=== PATIENT | male | born 2000 ===

== ENCOUNTER 2023-05-24 12:07 | Emergency (ER) | payer SELFPAY ==
[2023-05-24 12:16] VITALS: BP 175/105; PULSE 97; RESP 18; TEMP 37.1; O2SAT 96
--- NOTE | 2023-05-24 12:54 | ED.GENADUL_ITS ---
Discharge Plan Disposition Patient Disposition: Eloped Condition: Stable Discharge Details Chief Complaint: PsychEval Clinical Impression: Psychiatric disorder Primary Care Provider: Unknown,Unknown ED Provider: Bradley Johnson Home Meds and New Rx's Prescriptions: No Action Unable to Obtain HPI General Date/Time Provider Initiated Documentation: 05/24/23 12:38 . HPI Narrative: 22-year-old male endorses history of bipolar disorder being treated by psychiatrist however endorses multiple medications that he is unsure have helped him presents in psychiatric crisis, endorses that his family and friends are collaborating against him, endorses being awake for some time, denies suicidal or homicidal ideation however endorses that he knows that he needs help. Endorses prior psychiatric hospitalization in the past within the last 2 years. Related Data Home Medications Medication Instructions Recorded Confirmed Unknown [Unable to Obtain] 05/24/23 05/24/23 General Stated Complaint: PsychEval RIGOBERTO: 2 Review of Systems Narrative: Review of Systems Constitutional: negative Eyes: negative ENT: negative Cardiovascular: negative Respiratory: negative Gastrointestinal: negative : negative Musculoskeletal: negative Skin: negative Neurologic: negative Psych: Anxiety, paranoia Exam Narrative Exam Narrative: Physical Examination General: alert, awake, cooperative, moderate psychomotor agitation HEENT: normocephalic, atraumatic; PERRL, EOM intact, conjunctiva normal; no nasal discharge; moist mucous membranes Neck: supple, trachea midline; full ROM Chest: normal to inspection Respiratory: normal respiratory effort, speaking in full sentences Skin: no lesions, rashes or trauma appreciated Neuro: AAOx3, moving all extremities without deficit, no ataxia Extremities: No signs of trauma Psych: Mild to moderate psychomotor agitation, paranoia, delusions, moderately disorganized speech Course Vital Signs Vital signs: Vital Signs Temperature 37.1 C 05/24/23 12:16 Pulse 97 H 05/24/23 12:16 Respiratory Rate 18 05/24/23 12:16 Blood Pressure 175/105 H 05/24/23 12:16 Pulse Oximetry 96 05/24/23 12:16 Temperature 37.1 C 05/24/23 12:16 Temperature Source Tympanic 05/24/23 12:16 Pulse 97 H 05/24/23 12:16 Respiratory Rate 18 05/24/23 12:16 Respiratory Effort Normal 05/24/23 12:31 Blood Pressure 175/105 H 05/24/23 12:16 Blood Pressure Position Sitting 05/24/23 12:16 Pulse Oximetry 96 05/24/23 12:16 Oxygen Delivery Method Room Air 05/24/23 12:16 Oxygen Flow Rate 0 05/24/23 12:16 Pain Level 6 05/24/23 12:16 Comment Right knee pain from healed laceration; general body pain 05/24/23 12:16 Medical Decision Making 22-year-old male history of bipolar disorder prior psychiatric admission, unclear whether currently prescribed and/or compliant with psychiatric medications, presents with anxiety paranoid delusions psychomotor agitation and moderately disorganized speech. Denies SI or HI. Denies hallucinations however at multiple times during conversation patient pauses and appears to be attending to internal stimuli. Afebrile nontoxic nonmeningeal no signs of intoxication. Prior cannabis use in the past most recently last night to help him try to sleep. Concern for bipolar with psychotic features. Must also consider schizophrenia. Lower suspicion for intoxication traumatic injury or infectious process. Will attempt to obtain collateral information from family if available. Stat evaluation by [facility]. Patient will likely need inpatient hospitalization for stabilization of psychiatric condition. Offered patient anxiolysis here at this time patient declined. 13: 58 patient initially cooperative with evaluation however when asked to surrender his belongings for further psychiatric evaluation patient refused and walked out of the emergency department. Patient refused to give any demographic information and contact information upon arrival. I spoke with [facility] we will attempt to obtain collateral information from [facility] to better assist out reach to this patient in the community. 14: 06 was able to obtain contact information mobile phone number [phone], other contact phone [phone], with an address on file [address] [place], [place]; I have relayed this information to [facility] who will attempt to make contact Quality:SDOH Health Related Social Needs: No Data to Display PFSH All Active Problems (Updated 05/24/23 @ 14:09 by Bradley Johnson MD) Psychiatric disorder (Acute) Social History Smoking risk assessment performed?: No Alcohol Intake: current Alcohol Intake frequency: a few times a month Alcohol type: beer, wine and hard liquor Drug use: Daily Substance use type: marijuana PAWSS Have you Been Recently Intoxicated or Drunk Within the Last 30 days?: No Have you Ever Experienced Previous Episodes of Alcohol Withdrawal?: No Have you ever Experienced Withdrawal Seizures?: No Have you ever Experienced Delirium Tremens(DT)s?: No Have you ever undergone Alcohol Rehabilitation Treatment (i.e, inpt ot outpatient treatment programs)?: No Have you ever Experienced Blackouts?: No Have you ever Combined Alcohol with other Downers within the last 90 days?: No Have you ever Combined Alcohol with any other Substance of Abuse during the last 90 days?: No Positive Blood Alcohol level on Presentation? [PCS.BAL]: No Evidence of Increased Autonomic Activity (i.e. HR>120, tremor, sweating, agitation, nausea)?: No Result: 0
== END 2023-05-24 14:09 | disposition left against medical advice (07) ==
PROVIDERS: Emergency Provider Emergency Medicine
DX: F22 Delusional disorders (principal); F41.9 Anxiety disorder, unspecified; F31.9 Bipolar disorder, unspecified; Z53.29 Procedure and treatment not carried out because of patient's decision for other reasons
CPT/HCPCS: 99283